=== PATIENT | female | born 1975 | race Caucasian/White ===

== ENCOUNTER 2021-03-28 10:24 | Emergency (ER) | payer OTHER ==
[~2021-03-28] VITALS: Ht 170.2 cm; Wt 116.0 kg
--- NOTE | 2021-03-28 11:03 | NUR ---
PT AMBULATED TO RESTROOM WITH STEADY GAIT TO PROVIDE URINE SAMPLE. UA ORDERED PER PROTOCOL PA STUDENT AT BEDSIDE FOR ASSESSMENT.
[2021-03-28 11:16] LABS: MICROSCOPIC AUTO
--- NOTE | 2021-03-28 11:49 | NUR ---
US AT BEDSIDE
[2021-03-28 11:53] LABS: BASOPHILS % (AUTO) 0 % (0-1); EOSINOPHILS % (AUTO) 2 % (1-7); LYMPHOCYTES % (AUTO) 20 % (22-44); MEAN CORPUSCULAR HEMOGLOBIN 33.2 pg (27.0-34.8); MEAN CORPUSCULAR HGB CONC 34.5 g/dL (32.4-35.8); MEAN PLATELET VOLUME 8.6 fL (7.4-10.4); MONOCYTES % (AUTO) 9 % (2-9); NEUTROPHILS % (AUTO) 69 % (42-75); PLATELET COUNT 257 x10^3/uL (130-400); RED BLOOD COUNT 4.55 x10^6/uL (3.82-5.3); RED CELL DISTRIBUTION WIDTH 13.2 % (9.6-15.2)
[2021-03-28 12:02] LABS: ALBUMIN 3.4 g/dL (3.4-5.0); ANION GAP 7 mmol/L (5-15); CALCIUM 9.7 mg/dL (8.5-10.1); CHLORIDE 103 mmol/L (98-107)
[2021-03-28 12:09] LABS: ALANINE AMINOTRANSFERASE 47 U/L (12-78); ALKALINE PHOSPHATASE 65 U/L (45-117); BILIRUBIN,TOTAL 0.4 mg/dL (0.2-1.0); CREATININE 0.84 mg/dL (0.55-1.02); TOTAL PROTEIN 6.8 g/dL (6.4-8.2)
--- NOTE | 2021-03-28 12:20 | NUR ---
PT SLEEPING ON GURNEY. RESP EVEN AND UNLABORED. CALL LIGHT IN REACH.
--- NOTE | 2021-03-28 12:21 | NUR ---
ALL RESULTS ARE BACK AT THIS TIME. CHART UP FOR RECHECK.
--- NOTE | 2021-03-28 12:53 | NUR ---
N/O FOR CATH UA. URINE COLLECTED VIA STRAIGHT CATH AND TAKEN TO LAB.
[2021-03-28 13:07] LABS: MICROSCOPIC INDICATED
--- NOTE | 2021-03-28 13:19 | NUR ---
ALL RESULTS ARE BACK AT THIS TIME. CHART UP FOR RECHECK.
[2021-03-28 13:23] VITALS: BP 123/76
--- NOTE | 2021-03-28 13:48 | NUR ---
HEIDED TO CONSULT UROLOGY
== END 2021-03-28 15:41 | disposition home or self-care (01) ==
LOC: ED 15:00
DX: N13.2 Hydronephrosis with renal and ureteral calculous obstruction (principal); I10 Essential (primary) hypertension
CPT/HCPCS: 36415; 51701; 76770; 80053; 81001; 84703; 85025; 87086; 99284; P9612